=== PATIENT | female | born 1985 ===

== ENCOUNTER 2016-12-07 14:37 | Emergency (ER) | payer OTHER ==
[2016-12-07 14:38] VITALS: BMI 48.8
[2016-12-07 14:46] VITALS: RESP 20
[2016-12-07] MEDS ORDERED: Sodium Chloride 0.9% 1,000 ML IV ONE (15:38)
[2016-12-07 15:45] LABS: BASO % 0.3 % (0.0-2.0); EOS % 0.2 % (0.0-4.0); HEMATOCRIT 38.8 % (34.0-47.0); LYMPH # 1.6 K/uL (1.0-4.3); LYMPH % 25.9 % (20.0-40.0); MEAN CELL VOLUME 87.5 fL (81.0-99.0); MEAN CORPUSCULAR HEMOGLOBIN 28.9 pg (27.0-31.0); MEAN CORPUSCULAR HGB CONC 33.1 g/dL (33.0-37.0); MEAN PLATELET VOLUME 10.8 fL (7.2-11.7); MONO # 0.4 K/uL (0.0-0.8); MONO % 6.7 % (0.0-10.0)
--- NOTE | 2016-12-07 15:45 | C.PDOC ---
History Of Present Illness Patient is a 31 year old female who presents to the ER with a complaint of vomiting for the past 5 days. Patient states she is vomiting "all day long" and is PO intolerant. Patient reports she is after confirming with 2 home tests over the last 2 days and is P: 6, all premature births. Patient is not sure when last menstruation period was but approximates 2-3 weeks ago. Patient has a hx of morning sickness. Patient is homeless staying at [facility] and admits to tobacco use but denies ETOH and substance abuse. Patient states that although she has N/V, she is not having any abdominal pain or vaginal bleeding. Denies any fever or diarrhea. Time Seen by Provider: 12/07/16 15:22 Chief Complaint (Nursing): GI Problem History Per: Patient History/Exam Limitations: no limitations Onset/Duration Of Symptoms: Days (4) Current Symptoms Are (Timing): Still Present Context: Food (PO intolerant) Associated Symptoms: Vomiting. denies: Fever, Chills, Nausea, Diarrhea Exacerbating Factors: Food Past Medical History Reviewed: Historical Data, Nursing Documentation, Vital Signs Vital Signs: Last Vital Signs Temp 98.7 F 12/07/16 18:15 Pulse 75 12/07/16 18:15 Resp 20 12/07/16 18:15 BP 101/40 L 12/07/16 18:15 Pulse Ox 99 12/07/16 18:15 - Medical History PMH: Asthma, Back Problems (Herniated Disc), Bronchitis Surgical History: Appendectomy, Tonsillectomy - [facility] Procedures DELIVERY OF PRODUCTS OF CONCEPTION, EXTERNAL APPROACH (02/28/16) REPAIR ANAL SPHINCTER, OPEN APPROACH (02/28/16) Family History: States: Unknown Family Hx - Social History Hx Tobacco Use: Yes Hx Alcohol Use: No Hx Substance Use: No - Immunization History Hx Tetanus Toxoid Vaccination: No Hx Influenza Vaccination: No Hx Pneumococcal Vaccination: No Review Of Systems Constitutional: Negative for: Fever, Chills Cardiovascular: Negative for: Palpitations Respiratory: Negative for: Shortness of Breath Gastrointestinal: Positive for: Vomiting. Negative for: Nausea, Abdominal Pain , Diarrhea Physical Exam - Physical Exam Appears: Well, Non-toxic, No Acute Distress Skin: Normal Color, Warm, Dry Head: Atraumatic, Normacephalic Eye(s): bilateral: Normal Inspection, EOMI Ear(s): Bilateral: Normal Nose: Normal Oral Mucosa: Moist Tongue: Normal Appearing Teeth: Normal Dentition Gingiva: Normal Appearing Throat: Normal Neck: Normal Chest: Symmetrical Cardiovascular: Rhythm Regular, No Murmur Respiratory: Normal Breath Sounds, No Rales, No Rhonchi, No Wheezing Gastrointestinal/Abdominal: Bowel Sounds, Soft, No Tenderness, No Organomegaly, No Rebound Rectal: Deferred Back: Normal Inspection Extremity: Normal ROM Extremity: Bilateral: Atraumatic, Normal ROM Pulses: Left Radial: Normal, Right Radial: Normal Neurological/Psych: Oriented x3, Normal Speech, Normal Cognition ED Course And Treatment - Laboratory Results Result Diagrams: 12/07/16 15:28 12/07/16 15:28 O2 Sat by Pulse Oximetry: 97 (Room air) Pulse Ox Interpretation: Normal Progress Note: Blood work, blood type and screen, urinalysis, and HCG qualitative test ordered. Pepcid IVP, IV fluids, and zofran IVP. Medical Decision Making Medical Decision Making: Initial Impression: Hyperemesis gravidaruum Initial Plan: Will hydrate Disposition Counseled Patient/Family Regarding: Studies Performed, Diagnosis, Need For Followup, Rx Given - Disposition Referrals: [facility] [Outside] Disposition: HOME/ ROUTINE Disposition Time: 18:00 Condition: IMPROVED Additional Instructions: Ms. Crane, thank you for letting us take care of you today. Return to the ER if your symptoms worsen, or if any problems. Take the medication listed below as prescribed. Call the phone number listed below to make an appointment at our [facility]. They may also be able to assist you in getting your prescription (s) filled. Prescriptions: Cephalexin [cephalexin] 1 tab PO BID #14 cap Instructions: Hyperemesis Gravidarum (ED), Urinary Tract Infection in Women (ED ) Forms: General Discharge Instructions Print Language: YEMENI - POA Present On Arrival: None - Clinical Impression Clinical Impression: UTI (urinary tract infection), Hyperemesis gravidarum - Scribe Statement The provider has reviewed the documentation as recorded by the Scribmaycol Krishna All medical record entries made by the Scribe were at my direction and personally dictated by me. I have reviewed the chart and agree that the record accurately reflects my personal performance of the history, physical exam, medical decision making, and the department course for this patient. I have also personally directed, reviewed, and agree with the discharge instructions and disposition.
[2016-12-07 16:04] LABS: CHLORIDE 95 mmol/L (98-107); SODIUM 137 mmol/L (132-148)
[2016-12-07 16:05] LABS: POTASSIUM 3.7 mmol/L (3.6-5.2)
[2016-12-07 16:07] LABS: ALB/GLOB RATIO 1.4 (1.0-2.1); ALKALINE PHOSPHATASE 71 U/L (38-126); ALT/SGPT 57 U/L (9-52); AST/SGOT 28 U/L (14-36); BILIRUBIN,TOTAL 0.5 mg/dL (0.2-1.3); BLOOD UREA NITROGEN 8 mg/dL (7-17); CALCIUM 9.1 mg/dl (8.6-10.4); CARBON DIOXIDE 27 mmol/L (22-30); GFR AFRICAN-AMERICAN > 60; GLUCOSE,RANDOM 72 mg/dL (65-105); TOTAL PROTEIN 7.5 g/dL (6.3-8.3)
[2016-12-07] MEDS ORDERED: Lactated Ringer's 1,000 ML IV ONE (17:23)
[2016-12-07 17:27] LABS: RBC URINE 3 /hpf (0-3); URINE BACTERIA OCC (<OCC); URINE BILIRUBIN NEGATIVE (NEGATIVE); URINE BLOOD NEGATIVE (NEGATIVE); URINE COLOR Amber (YELLOW); URINE GLUCOSE (UA) NORMAL (Normal); URINE KETONE 1+ mg/dL (NEGATIVE); URINE LEUKOCYTE ESTERASE 1+ Leu/uL (Negative); URINE PROTEIN 2+ mg/dL (NEGATIVE); WBC URINE 7 /hpf (0-5)
[2016-12-07] MEDS ORDERED: Lactated Ringer's 1,000 ML ONE (17:47)
[2016-12-07] MEDS ORDERED: cefTRIAXone IV 1 gm in Dextros 50 ML IV STA (17:54)
[2016-12-07] MEDS ORDERED: cefTRIAXone IV 1 gm in Dextros 50 ML IVPB ONE (18:05)
[2016-12-07 18:15] VITALS: BP 101/40; PULSE 75; TEMP 98.7
[2016-12-13 12:30] VITALS: O2SAT 97
== END 2016-12-07 18:43 | disposition home or self-care (01) ==
LOC: C.ER 14:37
DX: O23.40 Unspecified infection of urinary tract in pregnancy, unspecified trimester (principal); O21.0 Mild hyperemesis gravidarum; Z3A.00 Weeks of gestation of pregnancy not specified
CPT/HCPCS: 80053; 81001; 82009; 84702; 84703; 85025; 86850; 86900; 87086; 96361; 96374; 96375; 99285; J0696; J2405; J7040; J7120